=== PATIENT | male | born 1950 | race Caucasian/White ===

== ENCOUNTER 2020-12-14 11:51 | Emergency (ER) | payer OTHER ==
--- OUTSIDE RECORDS SUMMARY | 2020-12-14 11:55 | XMS REPORT | Continuity of Care Document ---
:1950 Author Organization [facility] t Address [address] [place] [address] Care Team Providers Name Role Phone Gil Menjivar MD Primary Care Physician Problems Condition Condition Condition Status Onset Resolution Last Treating Co mments Source Name Details Category Date Date Treatment Clinician Date Impingemen Impingemen Disease Active 2016-[address] t syndrome t syndrome 2-06 Fiona kes - of right of right 00:00: Medica l shoulder shoulder 00 Center Rotator Rotator Disease Active 2016-[address] [facility] cuff tear, cuff tear, 2-06 Fiona kes - right right 00:00: Medical 00 [place] Hyperlipid Hyperlipid Disease Active 2016-[address] [facility] emia 06-09 [facility] 00 [place] Prehyperte Prehyperte Disease Active 2016-[address] nsion nsion 06-09 [facility] - 00:00: Medical 00 [place] Former Former Disease Active 2016-[address] [facility] smoker smoker 06-04 [facility] - 00:[facility]: Medical 00 [place] Rotator Rotator Disease Active 2016-[address] [facility] cuff cuff 06-04 [facility] - injury, injury, 00:00: Medical right, right, 00 Center sequela sequela Lumbar Lumbar Disease Active [facility] stenosis stenosis [facility] Depression Depression Disease Active C [facility] Allergies, Adverse Reactions, Alerts This patient has no known allergies or adverse reactions. Family History Family Member Diagnosis Comments Start Date Stop Date Source Natural sister No Known Problem [facility] Natural brother No Known Problem [facility] Natural father No Known Problem [facility] Natural mother No Known Problem [facility] Social History Social Habit Start Date Stop Date Quantity Comments Source Sex Assigned At [facility] kes - [facility] History of tobacco Current smoker JOSE Eddy - use [facility] Cigarettes smoked 2017-05-07 2017-05-07 STEVIE Eddy - current (pack per 00:00:00 00:00:00 [facility] day) - Reported Cigarette 2017-05-07 2017-05-07 STEVIE Eddy - pack-years 00:00:00 00:00:00 [facility] Tobacco use and 2017-05-07 2017-05-07 Former user STEVIE Rivera - exposure 00:00:00 00:00:00 [facility] Alcohol intake 2017-05-07 2017-05-07 Current STEVIE Olson es - 00:00:00 00:00:00 non-drinker of Medical Ce nter alcohol (finding) Smoking Status Start Date Stop Date Source Former smoker 2017-05-07 00:00:00 2017-05-07 00:00:00 [facility] Medications Ordered Filled Start Stop Current Ordering Indication Dosage Frequency Signature Comments Components Source Medication Medication Date Date Medication? Clinician (SIG) Name Name PARoxetine Yes TAKE ONE [facility] (PAXIL) 20 1-11 TABLET BY Luke [facility] - MG tablet 00:00: MOUTH ONCE Me dical 00 DAILY Center traMADol 2016-06 Yes 50mg Take [address] [facility] (ULTRAM) 50 2-06 by mouth [facility] - mg tablet 16:52: every 6 Medic al 16 (six) Center hours as needed for Pain. Immunizations Ordered Immunization Filled Immunization Date Status Commen ts Source Name Name Influenza High Dose 2017-04-03 Completed STEVIE S t [facility] Preservative Free IM 00:00:00 [facility] Procedures This patient has no known procedures. Results Test Description Test Time Test Comments Results Result [facility] Comments RAD, CHEST, 2 2017-04-09 Reason for FINAL REPORT PATIENT VIEWS 13:13:00 Exam:->pre-ope ID: [id number] Chest, rative two views HISTORY: clearance; Preoperative clearance smoking COMPARISON: None. history; mild DISCUSSION: Lungs are chronic cough clear without focal consolidation. Cardiomediastinal silhouette is unremarkable. No acute osseous abnormality. No pleural effusion or pneumothorax. Visualized portions of the upper abdomen are unremarkable. IMPRESSION: No acute cardiopulmonary abnormality. Signed: Priyank Morley MDReport Verified Date/Time: 04/09/2017 13:13:18 Reading Location: [address] Radiology Reading Room
--- NOTE | 2020-12-14 12:32 | RAD REPORT ---
EXAM DESCRIPTION: RAD - Chest Single View - 12/14/2020 12:20 pm CLINICAL HISTORY: Chest pain;SOB COMPARISON: No comparisons FINDINGS: No evidence of edema or pneumonia. The heart size is within normal limits.No acute osseous abnormality. No significant pleural effusions or pneumothorax. IMPRESSION: No acute cardiopulmonary disease.
[2020-12-14 12:47] LABS: Protime INR 1.17
[2020-12-14 12:52] LABS: Absolute Lymphocytes (CBC) 1.9 K/uL (0.7-4.9); Basophils % 0.5 % (0-1.3); Hematocrit 42.1 % (39.6-49.0); Lymphocytes % 25.8 % (15.3-44.8); MPV 8.1 fL (7.6-11.3); RBC Red Blood Cell Count 4.49 M/uL (4.33-5.43)
[2020-12-14] MEDS ORDERED: ALBUTEROL 2.5 MG/3 ML NEB SOL ONE (12:59)
[2020-12-14] MEDS ORDERED: IPRATROPIUM BROM 0.5MG/2.5ML ONE (12:59)
[2020-12-14 13:05] LABS: ALT/SGPT 19 U/L (12-78); AST/SGOT 12 U/L (15-37); Albumin 4.1 g/dL (3.4-5.0); Alkaline Phosphatase 63 U/L (45-117); BUN Blood Urea Nitrogen 11 mg/dL (7-18); Bicarbonate 24 mmol/L (21-32); Bilirubin Direct 0.2 mg/dL (0-0.2); Bilirubin Total 0.9 mg/dL (0.2-1.0); Glucose Level 89 mg/dL (74-106); Magnesium 2.2 mg/dL (1.8-2.4); NT PRO-BNP 349 pg/mL (<125); Potassium 4.3 mmol/L (3.5-5.1); Protein, Total 7.7 g/dL (6.4-8.2); Sodium Level 142 mmol/L (136-145); Troponin (Emerg Dept Use Only) < 0.02 ng/mL (0.0-0.045)
--- NOTE | 2020-12-14 17:06 | ER ---
Nurse's Notes [facility] Name: Blayne Chris Age: 70 yrs Sex: Male : 1950 Arrival Date: 12/14/2020 Time: 11:55 Bed 7 Private MD: Diagnosis: Chest pain, unspecified;Shortness of breath;Hypertensive heart disease without heart failure Presentation: 12/14 12:01 Chief complaint: Patient states: chest pain, SOB, and high blood pressure x 1 week ago. aa5 12:01 Coronavirus screen: shortness of breath. Ebola Screen: Patient negative for fever aa5 greater than or equal to 101.5 degrees Fahrenheit, and additional compatible Ebola Virus Disease symptoms. Initial Sepsis Screen: Does the patient meet any 2 criteria? No. Patient's initial sepsis screen is negative. Does the patient have a suspected source of infection? No. Patient's initial sepsis screen is negative. Risk Assessment: Do you want to hurt yourself or someone else? Patient reports no desire to harm self or others. Onset of symptoms was November 2020. 12:01 Acuity: CHRISTINA 3 aa5 12:01 Method Of Arrival: Ambulatory aa5 Triage Assessment: 11:45 General: Appears in no apparent distress. comfortable, Behavior is cooperative, bp appropriate for age, anxious. Pain: Complains of pain in chest. EENT:. Neuro: No deficits noted. Cardiovascular: Rhythm is sinus rhythm. Respiratory: No deficits noted. GI: No deficits noted. : No signs and/or symptoms were reported regarding the genitourinary system. Derm: No deficits noted. Musculoskeletal: No deficits noted. Historical: - Allergies: 12:10 No Known Allergies; aa5 - PMHx: 12:10 None; aa5 - PSHx: 12:10 Rotator cuff; aa5 - Immunization history:: Adult Immunizations unknown. - Social history:: Smoking status: Patient/guardian denies using tobacco. Screenin:30 Abuse screen: Denies threats or abuse. Denies injuries from another. Nutritional bp screening: No deficits noted. Tuberculosis screening: No symptoms or risk factors identified. Fall Risk None identified. Assessment: 11:45 General: SEE TRIAGE NOTE. bp 14:00 Reassessment: No changes from previously documented assessment. Patient and/or family bp updated on plan of care and expected duration. Pain level reassessed. Patient is alert, oriented x 3, equal unlabored respirations, skin warm/dry/pink. 16:00 Reassessment: Patient appears in no apparent distress at this time. Patient states bp feeling better. Patient states symptoms have improved. 17:20 Reassessment: PT D/C HOME AMBULATORY, DX WITH NON-CARDIAC CP. jl7 Vital Signs: 12:01 BP 152 / 97; Pulse 84; Resp 20 S; Temp 98.5(O); Pulse Ox 97% on R/A; Weight 95.25 kg aa5 (R); Height 6 ft. 0 in. (182.88 cm) (R); 13:30 BP 138 / 80; Pulse 83; Resp 25; Pulse Ox 100% ; bp 14:30 BP 128 / 73; Pulse 80; Resp 26; Pulse Ox 99% ; bp 16:30 BP 120 / 74; Pulse 66; Resp 20; Pulse Ox 100% ; bp 17:20 BP 132 / 71; Pulse 65; Resp 22; Temp 98.5; Pulse Ox 100% ; jl7 12:01 Body Mass Index 28.48 (95.25 kg, 182.88 cm) aa5 ED Course: 11:55 Patient arrived in ED. mr 12:01 Matt Barnes MD is Attending Physician. kdr 12:01 Arm band placed on Patient placed in an exam room, on a stretcher. aa5 12:10 Triage completed. aa5 12:20 XRAY Chest (1 view) In Process Unspecified. EDMS 12:30 Patient has correct armband on for positive identification. Bed in low position. Call bp light in reach. Side rails up X2. epic specialist on. Pulse ox on. NIBP on. 12:56 Kan Funk, FRANKLYN is Primary Nurse. bp 13:00 Inserted saline lock: 20 gauge in right antecubital area, using aseptic technique. bp Blood collected. 15:23 Repeat lab(s) drawn. by me, sent to lab. jl7 17:21 No provider procedures requiring assistance completed. IV discontinued, intact, jl7 bleeding controlled, No redness/swelling at site. Pressure dressing applied. Patient maintains SpO2 saturation greater than 95% on room air. Administered Medications: 12:30 Drug: Albuterol - atroVENT (ipratropium) (3:1) (2.5 mg - 0.5 mg) 3 ml Route: Nebulizer; bp 16:47 Follow up: Response: No adverse reaction; Marked relief of symptoms bp Outcome: 17:05 Discharge ordered by . dexter 17:21 Discharged to home ambulatory. becca 17:21 Condition: stable 17:21 Discharge instructions given to patient, Instructed on discharge instructions, follow up and referral plans. Demonstrated understanding of instructions, follow-up care. 17:23 Patient left the ED. [email or web address] Signatures: Dispatcher [employer] EDMS Matt Barnes MD MD kdr Rivera, Mary mr DallasDomenica, RN RN aa5 Arie Rodriguez RN RN jl7 Kan Funk RN RN bp
--- NOTE | 2020-12-14 17:06 | EDPHYS ---
Physician Documentation [facility] Name: Blayne Chris Age: 70 yrs Sex: Male : 1950 Arrival Date: 12/14/2020 Time: 11:55 Bed 7 Private MD: ED Physician Matt Barnes HPI: 12/14 17:33 This 70 yrs old Male presents to ER via Ambulatory with complaints of Blood kdr Pressure Problem, Chest Pain, Breathing Difficulty. 17:33 The patient or guardian reports chest pain that is located primarily in the anterior kdr chest wall, bilaterally, chest diffusely. Onset: gradually, 1 week(s) ago. The pain does not radiate. Associated signs and symptoms: Pertinent positives: shortness of breath, Pertinent negatives: abdominal pain, diaphoresis, dizziness, headache, lower extremity pain, lower extremity swelling, lightheadedness, nausea, near syncope, palpitations, recent travel, syncope. The chest pain is described as aching, dull, a pressure. Duration: The patient or guardian reports multiple episodes, that are intermittent, that wax and wane, with no pattern. Modifying factors: The symptoms are alleviated by nothing. the symptoms are aggravated by nothing. Severity of pain: At its worst the pain was mild moderate just prior to arrival, in the emergency department the pain has improved mildly. The patient has not experienced similar symptoms in the past. Historical: - Allergies: 12:10 No Known Allergies; aa5 - PMHx: 12:10 None; aa5 - PSHx: 12:10 Rotator cuff; aa5 - Immunization history:: Adult Immunizations unknown. - Social history:: Smoking status: Patient/guardian denies using tobacco. ROS: 17:33 Constitutional: Negative for fever, chills, and weight loss, Eyes: Negative for injury, kdr pain, redness, and discharge, Neck: Negative for injury, pain, and swelling, Respiratory: Negative for shortness of breath, cough, wheezing, and pleuritic chest pain, Abdomen/GI: Negative for abdominal pain, nausea, vomiting, diarrhea, and constipation, Back: Negative for injury and pain, : Negative for injury, bleeding, discharge, and swelling, MS/Extremity: Negative for injury and deformity, Skin: Negative for injury, rash, and discoloration, Neuro: Negative for headache, weakness, numbness, tingling, and seizure activity. Psych: Negative for depression, anxiety, suicide ideation, homicidal ideation, and hallucinations, Allergy/Immunology: Negative for hives, rash, and allergies, Endocrine: Negative for neck swelling, polydipsia, polyuria, polyphagia, and marked weight changes, Hematologic/Lymphatic: Negative for swollen nodes, abnormal bleeding, and unusual bruising. 17:33 Cardiovascular: Positive for chest pain, Negative for edema, orthopnea, palpitations, paroxysmal nocturnal dyspnea. Exam: 17:33 Constitutional: This is a well developed, well nourished patient who is awake, alert, kdr and in no acute distress. Head/Face: Normocephalic, atraumatic. Eyes: Pupils equal round and reactive to light, extra-ocular motions intact. Lids and lashes normal. Conjunctiva and sclera are non-icteric and not injected. Cornea within normal limits. Periorbital areas with no swelling, redness, or edema. Neck: Trachea midline, no thyromegaly or masses palpated, and no cervical lymphadenopathy. Supple, full range of motion without nuchal rigidity, or vertebral point tenderness. No Meningismus. Chest/axilla: Normal chest wall appearance and motion. Nontender with no deformity. No lesions are appreciated. Cardiovascular: Regular rate and rhythm with a normal S1 and S2. No gallops, murmurs, or rubs. Normal PMI, no JVD. No pulse deficits. Respiratory: Lungs have equal breath sounds bilaterally, clear to auscultation and percussion. No rales, rhonchi or wheezes noted. No increased work of breathing, no retractions or nasal flaring. Abdomen/GI: Soft, non-tender, with normal bowel sounds. No distension or tympany. No guarding or rebound. No evidence of tenderness throughout. Back: No spinal tenderness. No costovertebral tenderness. Full range of motion. Skin: Warm, dry with normal turgor. Normal color with no rashes, no lesions, and no evidence of cellulitis. MS/ Extremity: Pulses equal, no cyanosis. Neurovascular intact. Full, normal range of motion. Neuro: Awake and alert, GCS 15, oriented to person, place, time, and situation. Cranial nerves II-XII grossly intact. Motor strength 5/5 in all extremities. Sensory grossly intact. Cerebellar exam normal. Normal gait. Psych: Awake, alert, with orientation to person, place and time. Behavior, mood, and affect are within normal limits. 17:33 ECG was reviewed by the Attending Physician. Vital Signs: 12:01 BP 152 / 97; Pulse 84; Resp 20 S; Temp 98.5(O); Pulse Ox 97% on R/A; Weight 95.25 kg aa5 (R); Height 6 ft. 0 in. (182.88 cm) (R); 13:30 BP 138 / 80; Pulse 83; Resp 25; Pulse Ox 100% ; bp 14:30 BP 128 / 73; Pulse 80; Resp 26; Pulse Ox 99% ; bp 16:30 BP 120 / 74; Pulse 66; Resp 20; Pulse Ox 100% ; bp 17:20 BP 132 / 71; Pulse 65; Resp 22; Temp 98.5; Pulse Ox 100% ; jl7 12:01 Body Mass Index 28.48 (95.25 kg, 182.88 cm) aa5 MDM: 17:05 Patient medically screened. [facility] 12/15 07:25 Data reviewed: vital signs, nurses notes, lab test result(s), radiologic studies. kdr Counseling: I had a detailed discussion with the patient and/or guardian regarding: the historical points, exam findings, and any diagnostic results supporting the discharge/admit diagnosis, lab results, radiology results, the need for further work-up and treatment in the hospital. 12/14 12:02 Order name: Basic Metabolic Panel; Complete Time: 14:54 [facility] 12/14 12:02 Order name: CBC with Diff; Complete Time: 14:54 [facility] 12/14 12:02 Order name: LFT's; Complete Time: 14:54 [facility] 12/14 12:02 Order name: Magnesium; Complete Time: 14:54 [facility] 12/14 12:02 Order name: NT PRO-BNP; Complete Time: 14:54 [facility] 12/14 12:02 Order name: PT-INR; Complete Time: 14:54 [facility] 12/14 12:02 Order name: Troponin (emerg Dept Use Only); Complete Time: 14:54 [facility] 12/14 12:02 Order name: XRAY Chest (1 view); Complete Time: 14:54 [facility] 12/14 12:02 Order name: EKG; Complete Time: 12:03 [facility] 12/14 12:02 Order name: Cardiac monitoring; Complete Time: 12:29 [facility] 12/14 14:42 Order name: SARS-COV-2 RT PCR; Complete Time: 14:54 [facility] 12/14 14:55 Order name: Troponin (emerg Dept Use Only); Complete Time: 16:50 [facility] 12/14 12:02 Order name: EKG - Nurse/Tech; Complete Time: 12:29 [facility] 12/14 12:02 Order name: IV Saline Lock; Complete Time: 12:29 [facility] 12/14 12:02 Order name: Labs collected and sent; Complete Time: 12:29 [facility] 12/14 12:02 Order name: O2 Per Protocol; Complete Time: 12:29 [facility] 12/14 12:02 Order name: O2 Sat Monitoring; Complete Time: 12:30 kdr EC/15 17:33 Rate is 74 beats/min. Rhythm is regular, Sinus Rhythm with Unifocal PVCs, Occasional kdr PVCs. QRS [place] is Normal. ND interval is normal. QRS interval is normal. QT interval is normal. Clinical impression: NSR w/ Non-specific ST/T Changes. Administered Medications: 12:30 Drug: Albuterol - atroVENT (ipratropium) (3:1) (2.5 mg - 0.5 mg) 3 ml Route: Nebulizer; bp 16:47 Follow up: Response: No adverse reaction; Marked relief of symptoms bp Disposition Summary: 12/14/20 17:05 Discharge Ordered Location: Home kdr Problem: new kdr Symptoms: have improved kdr Condition: Stable kdr Diagnosis - Chest pain, unspecified kdr - Shortness of breath kdr - Hypertensive heart disease without heart failure kdr Followup: kdr - With: Private Physician - When: 2 - 3 days - Reason: If symptoms return, Further diagnostic work-up, Recheck today's complaints, Continuance of care, Re-evaluation by your physician Discharge Instructions: - Discharge Summary Sheet kdr - Shortness of Breath, Adult, [id number] kdr - Nonspecific Chest Pain, Adult, [id number] kdr Forms: - Medication Reconciliation Form kdr - Thank You Letter kdr Signatures: Dispatcher [employer] Matt Allen MD MD kdr Domenica Dallas, FRANKLYN RN aa5 Kan Funk RN RN bp Corrections: (The following items were deleted from the chart) 13:44 12:23 CORONAVIRUS+MR.[email or web address].BRZ ordered. EDMS EDMS
[2020-12-14 17:30] VITALS: TEMP 98.5
[2020-12-14 17:34] VITALS: O2SAT 100
[2020-12-14 17:36] VITALS: BP 132/71
--- NOTE | 2020-12-15 11:46 | EKG ---
Test Date: 2020-12-14 Test Time: 12:12:00 Leader Writer: GERBER MEASUREMENT RESULTS: Intervals: Rate: 74 TN: 162 QRSD: 104 QT: 424 QTc: 470 [place]: P: 69 TN: 162 QRS: -59 T: 66 INTERPRETIVE STATEMENTS: Sinus rhythm with sinus arrhythmia with occasional premature ventricular complexes Left anterior fascicular block Abnormal ECG Compared to ECG 09/19/2005 09:57:09 Ventricular premature complex(es) now present Left anterior fascicular block now present Electronically Signed On 12-15-20 11:42:21 CDT by López Sanders
== END 2020-12-14 17:23 | disposition home or self-care (01) ==
LOC: ER 11:51
DX: I11.9 Hypertensive heart disease without heart failure (principal); R06.02 Shortness of breath; Z20.822 Contact with and (suspected) exposure to COVID-19
CPT/HCPCS: 93005; 85025; 80048; 36415; 83735; 85610; 80076; 84484 ×2; 83880; 71045; 99285; U0003

== ENCOUNTER 2021-08-10 08:37 | Day surgery (SDC) | payer OTHER ==
--- NOTE | 2021-08-08 12:54 | EKG ---
Test Date: 2021-08-07 Test Time: 14:35:14 Search Engineer: CATRINA MEASUREMENT RESULTS: Intervals: Rate: 61 CA: 164 QRSD: 108 QT: 442 QTc: 444 [place]: P: 58 CA: 164 QRS: -33 T: 34 INTERPRETIVE STATEMENTS: Normal sinus rhythm Left axis deviation Incomplete left bundle branch block Abnormal ECG Compared to ECG 12/14/2020 12:12:00 Left-axis deviation now present Left bundle-branch block now present Sinus arrhythmia no longer present Ventricular premature complex(es) no longer present Left anterior fascicular block no longer present Electronically Signed On 08-08-21 12:52:07 PIPED POCKET MACHINE OPERATOR by López Sanders
[2021-08-10] MEDS ORDERED: Ringers Lactate 1,000 ML IV ONE (08:44)
[2021-08-10] MEDS ORDERED: LIDOCAINE 1% W/EPI 1:100,000 MDV 50 ML VIAL ONE (09:14)
[2021-08-10] MEDS ORDERED: EPINEPHRINE/PF 1 MG/ML AMP ONE (09:14)
[2021-08-10] MEDS ORDERED: LIDOCAINE 1% MPF 5 ML VIAL ONE (09:24)
[2021-08-10] MEDS ORDERED: FENTANYL CITR 100 MCG/2 ML ONE (09:24)
[2021-08-10] MEDS ORDERED: MIDAZOLAM HCL 2 MG/2 ML INJ ONE (09:24)
[2021-08-10] MEDS ORDERED: propofoL 200 MG/20 ML VIAL IV ONE (09:24)
[2021-08-10] MEDS ORDERED: ROCURONIUM 50 MG/5 ML VIAL IV ONE (09:24)
[2021-08-10] MEDS ORDERED: dexAMETHasone 10 MG/ML VIAL ONE (09:59)
[2021-08-10] MEDS ORDERED: ONDANSETRON 4 MG/2 ML VIAL ONE (10:07)
[2021-08-10] MEDS ORDERED: KETOROLAC 30 MG/ML INJ ONE (10:07)
--- NOTE | 2021-08-10 10:17 | P.BOP ---
Preoperative diagnosis: dysphonia, neoplasm uncertain behavior, former smoker Postoperative diagnosis: same Primary procedure: DL with telescope and biopsy Technical Service Rep: NONE,NONE Estimated blood loss: <5ml Specimen: right true vocal fold Findings: friable mass on full length of R TVF, extending toward anterior commisure Anesthesia: General Complications: None Implants: none Fluids & blood products: Crystalloid 550ml Transferred to: Recovery Room Condition: Good
[2021-08-10] MEDS ORDERED: SUGAMMADEX SODIUM 200 MG/2 ML VIAL IV ONE (10:19)
[2021-08-10] MEDS: HYDROMORPHONE HCL 1 MG/ML INJ ONE ×2 (10:48→10:53)
[2021-08-10] MEDS ORDERED: AMIODARONE HCL 150 MG in D5W 100 ML IV STA (10:54)
[2021-08-10] MEDS ORDERED: AMIODARONE HCL 150 MG/3 ML INJ IV ONE (11:00)
[2021-08-10] MEDS ORDERED: HYDROCODONE/APAP 7.5/325 MG TAB ONE (11:54)
--- NOTE | 2021-08-10 13:08 | EKG ---
Test Date: 2021-08-10 Test Time: 10:43:07 Tailer Out: MILAGROS MEASUREMENT RESULTS: Intervals: Rate: 115 ME: QRSD: 108 QT: 348 QTc: 481 [place]: P: ME: QRS: -52 T: 19 INTERPRETIVE STATEMENTS: Atrial fibrillation with rapid ventricular response with premature ventricular or aberrantly conducted complexes Left axis deviation Nonspecific ST abnormality, probably digitalis effect Abnormal ECG Compared to ECG 08/07/2021 14:35:14 Ventricular premature complex(es) now present ST (T wave) deviation now present Sinus rhythm no longer present Left bundle-branch block no longer present Electronically Signed On 08-10-21 13:07:50 CREATIVE WRITER by López Sanders
[2021-08-10 13:43] VITALS: BP 130/79; TEMP 97.4; O2SAT 96
--- NOTE | 2021-08-11 00:54 | OP ---
Date of Procedure: 08/10/2021 Surgeon: Roberta Cardoza MD Maintenance Mechanic 2Nd Shift: None. 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 Procedure: Direct laryngoscopy with telescope and biopsy. Significant Surgical Findings: Friable mildly exophytic tumor involving the full length and breadth of the true vocal fold, but not obviously extending into the laryngeal ventricle, nor involving the a rytenoid mucosa. 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 Indication For Procedure: Mr. 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 Based on h is flexible laryngoscopy findings, I recommended a direct laryngoscopy in the operating room with bio psies due to clinical suspicion for squamous cell carcinoma. The risks, benefits, and alternatives t o the procedure were discussed with the patient, who agreed to proceed. Description Of Procedure: The patient was brought to the operating room. He was placed under genera l anesthesia via oral endotracheal tube. A shoulder roll was placed and the neck was extended with s upport of the head. A tooth guard was placed over the upper teeth and a [employer] laryngoscope fi tted with a 15-degree rigid telescope was used to perform a direct laryngoscopy. The hard and soft p alate, uvula, bilateral tonsils, and posterior pharyngeal wall all seemed unremarkable. The base of tongue had no visible or palpable lesions. The epiglottis was mildly erythematous, but did not show any ulcerations or easy friability or any evidence of gross tumor. The arytenoids demonstrated taylor h mucosa. The Aydin-[employer] was then placed in suspension for better visualization of the glottis. T here was irregular minimally exophytic tumor noted along the length and width of the right true vocal fold, which did not appear to extend onto the arytenoid and did not appear to extend into the laryng eal ventricle. The abnormal-appearing tissue did extend into the anterior commissure with some white plaques and thickening along the left anterior vocal fold. After photodocumentation, cup forceps wa s used to make several small biopsies along the length of the right vocal fold, which were then sent to permanent section pathology. A small cotton pledget was placed against the biopsy site for severa l minutes to aid in hemostasis. After removal, the area appeared stable with no active bleeding and the laryngoscope was released from suspension and slowly withdrawn. There was no apparent injury to the tongue, pharynx, lips, or teeth. The mouth guard was removed and the patient was returned to car e of anesthesia for awakening and extubation in the operating room, which proceeded without difficult y. Estimated Blood Loss: Minimal. Complications: None. Implants: None. Disposition: The patient will be discharged home later today and follow up with Dr. Cardoza in 10 da for discussion of pathology results and treatment options. GLENNA/LUKE Voice ID: [id number] Report ID: [id number]
== END 2021-08-10 13:25 | disposition home or self-care (01) ==
LOC: OR 08:37
PROVIDERS: ATTEND Otolaryngology
PROC: 0CBT8ZX Excision of Right Vocal Cord, Via Natural or Artificial Opening Endoscopic, Diagnostic (ICD-10-PCS; principal; 2021-08-10 10:00)
DX: C32.0 Malignant neoplasm of glottis (principal); R49.0 Dysphonia; E66.3 Overweight; Z20.822 Contact with and (suspected) exposure to COVID-19; Z87.891 Personal history of nicotine dependence
CPT/HCPCS: 88305; 93005; J0171; J0282; J1100; J1170; J2250; J2405; J2704; J3010; J7120; U0003

== ENCOUNTER 2022-01-22 06:51 | Emergency (ER) | payer OTHER ==
--- OUTSIDE RECORDS SUMMARY | 2022-01-22 06:53 | XMS REPORT | Continuity of Care Document ---
:1950 Author Organization [facility] t Address [address] [place] [address] Care Team Providers Name Role Phone Unknown, Physician Primary Care Physician Unavailable SARAH ESPINOZA Attending Clinician Unavailable Libby Darling MA Attending Clinician Unavailable Lala Noel MA Attending Clinician Unavailable Lori Patterson APRN Attending Clinician SARAH ESPINOZA Attending Clinician Unavailable SARAH ESPINOZA Admitting Clinician Unavailable SARAH ESPINOZA Admitting Clinician Unavailable Payers Payer Name Policy Type Policy Number Effective Date Expiration Date juvenalce MEDICARE PART A [id number] 2013 AND B 00:00:00 Problems Condition Condition Condition Status Onset Resolution Last Treating Co mments Source Name Details Category Date Date Treatment Clinician Date No known No known Disease [place] active active Health problems problems Allergies, Adverse Reactions, Alerts This patient has no known allergies or adverse reactions. Social History Social Habit Start Date Stop Date Quantity Comments Source History of tobacco Cigarette Smoker [facility] use Tobacco use and 2021-12-31 2021-12-31 Smokeless tobacco [facility] exposure 00:00:00 00:00:00 non-user Cigarette 2021-09-17 2021-09-17 [facility] pack-years 00:00:00 00:00:00 Sex Ass[birth year] At [birth year] [facility] 00:00:00 00:00:00 Smoking Status Start Date Stop Date Source Ex-smoker 2021-12-31 00:00:00 2021-12-31 00:00:00 [facility] Medications Ordered Filled Start Stop Current Ordering Indication Dosage Frequency Signature Comments Components Source Medication Medication Date Date Medication? Clinician (SIG) Name Name HYDROcodone 2021-0 202- Yes [id number] 1{tbl} Q6H Take 1 [facility] -acetaminop 6-21 06-27 tablet by [facility] ([employer]) 00:00: 04:59 mouth 5-325 MG 00 :00 every 6 tablet (six) hours if needed for severe pain for up to 5 days. HYDROcodone 2021-0 Yes [id number] 1{tbl} Q6H Take 1 [facility] -acetaminop 6-06 tablet by [facility] ([employer]) 00:00: mouth 5-325 MG 00 every 6 tablet (six) hours if needed for severe pain for up to 45 doses. HYDROcodone 2021-0 Yes [id number] 1{tbl} Q6H Take 1 UT -acetaminop 6-06 tablet by [facility] ([employer]) 00:00: mouth 5-325 MG 00 every 6 tablet (six) hours if needed for severe pain for up to 45 doses. HYDROcodone 2021-0 Yes [id number] 1{tbl} Q6H Take 1 UT -acetaminop 6-06 tablet by [facility] ([employer]) 00:00: mouth 5-325 MG 00 every 6 tablet (six) hours if needed for severe pain for up to 45 doses. HYDROcodone 2021-0 Yes [id number] 1{tbl} Q6H Take 1 UT -acetaminop 6-06 tablet by He [facility] ([employer]) 00:00: mouth 5-325 MG 00 every 6 tablet (six) hours if needed for severe pain for up to 45 doses. HYDROcodone 2021-0 Yes [id number] 1{tbl} Q6H Take 1 UT -acetaminop 6-06 tablet by [facility] ([employer]) 00:00: mouth 5-325 MG 00 every 6 tablet (six) hours if needed for severe pain for up to 45 doses. HYDROcodone 2021-0 Yes [id number] 1{tbl} Q6H Take 1 UT -acetaminop 6-06 tablet by [facility] ([employer]) 00:00: mouth 5-325 MG 00 every 6 tablet (six) hours if needed for severe pain for up to 45 doses. HYDROcodone Yes [id number] 1{tbl} Q6H Take 1 UT -acetaminop 6-06 tablet by [facility] ([place]) 00:00: mouth 5-325 MG 00 every 6 tablet (six) hours if needed for severe pain for up to 45 doses. traMADol 2021- No [id number] 50mg Take 1 U T (Ultram) 50 5-18 05-24 tablet (50 [facility] MG tablet 00:00: 04:59 mg total) 00 :00 by mouth every 8 (eight) hours if needed for severe pain for up to 5 days. No known No No known UT medications 4-18 medication He alth 10:10: s 44 No known No No known UT medications 4-18 medication He alth 10:10: s 44 No known No No known UT medications 4-18 medication He alth 10:10: s 44 No known No No known UT medications 4-18 medication He alth 10:10: s 44 Vital Signs Vital Name Observation Time Observation Value Comments Source Body height 2021-12-31 16:25:00 182.9 cm [facility] Body weight 2021-12-31 16:25:00 77.111 kg [facility] BMI 2021-12-31 16:25:00 23.06 kg/m2 [facility] Body height 2021-11-19 15:55:00 182.9 cm [facility] Body weight 2021-11-19 15:55:00 84.369 kg [facility] BMI 2021-11-19 15:55:00 25.23 kg/m2 [facility] Procedures This patient has no known procedures. Encounters Start End Encounter Admission Attending Care Care Encounter Source Date/Time Date/Time Type Type Clinicians Facility Department ID 2021-12-26 Outpatient [facility] [id number] [place] 09:37:58 [id number] [facility] 2021-11-19 Outpatient SARAH ESPINOZA [facility] [id number] [id number] [place] 10:52:12 [id number] [facility] 2021-11-16 Outpatient SARAH ESPINOZA [facility] [id number] [id number] [place] 13:22:29 [id number] [facility] 2021-10-19 Outpatient [facility] [id number] [place] 17:08:26 [id number] Health 2022-02-11 2022-02-11 Outpatient SARAH ESPINOZA [facility] [id number] [place] 12:30:00 12:30:00 Health 2021-12-31 2021-12-31 Office Sarah Espinoza [facility] 6400 [id number] [place] 12:00:00 12:15:[address] [id number] Health [id number] 3 2021-12-27 2021-12-27 Telephone Sarah Espinoza [facility] 6400 1.2.840.114 [id number] [place] 00:00:00 00:00:[address] [id number] Health [id number] 3 2021-12-26 2021-12-26 Telephone Sarah Espinoza [facility] 6400 1.2.840.114 [id number] [place] 00:00:00 00:00:[address] [id number] Health [id number] 3 2021-12-25 2021-12-25 Telephone Sarah Espinoza [facility] 6400 1.2.840.114 [id number] [place] 00:00:00 00:00:[address] [id number] Health [id number] 3 2021-11-20 2021-11-20 Telephone Libby Darling [facility] 6400 1.2.840 .114 [id number] [place] 00:00:00 00:00:[address] [id number] Health [id number] 3 2021-11-19 2021-11-19 Office Sarah Espinoza [facility] 6400 1.2.840.114 [id number] [place] 11:00:00 11:29:[address] [id number] Health [id number] [id number] 3 2021-11-16 2021-11-16 Telephone Libby Darling [facility] 6400 1.2.840 .114 [id number] [place] 00:00:00 00:00:[address] [id number] Health [id number] [id number] 3 2021-11-05 2021-11-05 Telephone Lala Noel [facility] 6400 1.2.84 0.114 [id number] [place] 00:00:00 00:00:[address] [id number] Health [id number] [id number] 3 2021-10-24 2021-10-24 Telephone Yesenia [facility] 6400 1.2.840.114 [id number] [place] 00:00:00 00:00:[address] [id number] Health [id number] [id number] 3 2021-10-24 2021-10-24 Telephone Libby Darling [facility] 6400 1.2.840 .114 [id number] [place] 00:00:00 00:00:[address] [id number] Health [id number] [id number] 3 2021-10-19 2021-10-19 Telephone Sarah Espinoza [facility] 1.2.840.114 [id number] [place] 00:00:00 00:00:00 [facility] [id number] [facility] alth [place] 1 [id number] [id number] 3 2021-10-15 2021-10-15 Telephone Sarah Espinoza [facility] 1.2.840.114 [id number] [place] 00:00:00 00:00:00 [facility] [id number] [facility] alth [place] 1 [id number] [id number] 3 2021-10-10 2021-10-10 Outpatient SARAH ESPINOZA [facility] [id number] [facility] 05:17:00 23:59:00 2021-10-10 2021-10-10 Outpatient SARAH ESPINOZA [facility] [id number] [place] 08:00:00 08:00:00 Health Results Test Description Test Time Test Comments Results Result [facility] e Comments RAD, CHEST, 2 2017-04-09 Reason for FINAL REPORT PATIENT VIEWS 13:13:00 Exam:->pre-ope ID: [id number] Chest, two rative views HISTORY: clearance; Preoperative clearance smoking COMPARISON: None. history; mild DISCUSSION: Lungs are chronic cough clear without focal consolidation. Cardiomediastinal silhouette is unremarkable. No acute osseous abnormality. No pleural effusion or pneumothorax. Visualized portions of the upper abdomen are unremarkable. IMPRESSION: No acute cardiopulmonary abnormality. Signed: Priyank Morley MDReport Verified Date/Time: 04/09/2017 13:13:18 Reading Location: [address] Radiology Reading Room
[2022-01-22] MEDS ORDERED: LACTULOSE 20 GM/30 ML UCUP ONE (07:49)
--- NOTE | 2022-01-22 08:07 | RAD REPORT ---
EXAM DESCRIPTION: RAD - Abdomen Acute Series - 01/22/2022 7:52 am CLINICAL HISTORY: Abd pain COMPARISON: Chest Single View dated 12/14/2020; Ct Skull/Thigh dated 11/15/2021 FINDINGS: Nonobstructive bowel gas pattern. No acute osseous abnormality.Visualized lungs are unrema rkable.No abnormal calcifications. Soft tissue anchors in the right humeral head. IMPRESSION: Nonobstructive bowel gas pattern.
--- NOTE | 2022-01-22 08:37 | ER ---
Nurse's Notes [facility] Name: Blayne Chris Age: 71 yrs Sex: Male : 1950 Arrival Date: 01/22/2022 Time: 06:54 Bed 19 Private MD: Diagnosis: Constipation;Constipation, unspecified Presentation: 01/22 07:01 Chief complaint: Patient states: "I have throat cancer, and after this last treatment i tw5 just have not been able to have a bowl movement. The only thing that has come out is water. 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 Coronavirus screen: Vaccine status: Patient reports receiving the 2nd dose of the covid vaccine. Exanet. Ebola Screen: Patient negative for fever greater than or equal to 101.5 degrees Fahrenheit, and additional compatible Ebola Virus Disease symptoms Patient denies exposure to infectious person. Patient denies travel to an Ebola-affected area in the 21 days before illness onset. Initial Sepsis Screen: Does the patient meet any 2 criteria? No. Patient's initial sepsis screen is negative. Does the patient have a suspected source of infection? No. Patient's initial sepsis screen is negative. Risk Assessment: Do you want to hurt yourself or someone else? Patient reports no desire to harm self or others. Onset of symptoms is unknown. 07:01 Method Of Arrival: Ambulatory tw5 07:01 Acuity: CHRISTINA 3 tw5 Triage Assessment: 07:02 General: Appears in no apparent distress. Behavior is calm, cooperative, appropriate tw5 for age. Pain: Pain currently is 5 out of 10 on a pain scale. GI: Abdomen is flat. Historical: - Allergies: 07:02 No Known Allergies; tw5 - PSHx: 07:02 rotator cuff; tw5 - Immunization history:: Adult Immunizations not up to date. - Social history:: Smoking status: Patient/guardian denies using tobacco, the patient reports quitting approximately 12 years ago. Screenin:20 Abuse screen: Denies threats or abuse. Nutritional screening: No deficits noted. jd3 Tuberculosis screening: No symptoms or risk factors identified. Fall Risk Ambulatory Aid- None/Bed Rest/Nurse Assist (0 pts). Gait- Normal/Bed Rest/Wheelchair (0 pts) Mental Status- Oriented to own ability (0 pts). Total Redman Fall Scale indicates No Risk (0-24 pts). Assessment: 07:18 General: Appears in no apparent distress. comfortable, Behavior is calm, cooperative, jd3 appropriate for age. Pain: Complains of pain in abdomen Quality of pain is described as crampy, pressure. Neuro: Villasenor Agitation-Sedation Scale (RASS): 0 - Alert and Calm Level of Consciousness is awake, alert, obeys commands, Oriented to person, place, time, situation. Cardiovascular: Denies chest pain, Capillary refill < 3 seconds Patient's skin is warm and dry. Respiratory: Airway is patent Respiratory effort is even, unlabored, Respiratory pattern is regular, symmetrical, Denies cough, shortness of breath. GI: Abdomen is non-distended, Bowel sounds present X 4 quads. Abd is soft and non tender X 4 quads. Reports constipation, diarrhea. : No signs and/or symptoms were reported regarding the genitourinary system. EENT: No signs and/or symptoms were reported regarding the EENT system. Derm: Skin is intact, Skin is dry, Skin is normal, Skin temperature is warm. Musculoskeletal: Circulation, motion, and sensation intact. Range of motion: intact in all extremities. 08:17 Reassessment: Patient appears in no apparent distress at this time. Patient and/or jd3 family updated on plan of care and expected duration. Pain level reassessed. Patient is alert, oriented x 3, equal unlabored respirations, skin warm/dry/pink. pt assisted to restroom. 08:44 Reassessment: Patient appears in no apparent distress at this time. Patient and/or jd3 family updated on plan of care and expected duration. Pain level reassessed. Patient is alert, oriented x 3, equal unlabored respirations, skin warm/dry/pink. Vital Signs: 07:01 BP 146 / 82; Pulse 62; Resp 18; Temp 98.2; Pulse Ox 98% ; Weight 81.65 kg; Height 6 ft. tw5 0 in. (182.88 cm); Pain 5/10; 08:18 BP 140 / 79; Pulse 64; Resp 17; Pulse Ox 98% on R/A; jd3 07:01 Body Mass Index 24.41 (81.65 kg, 182.88 cm) tw5 ED Course: 06:54 Patient arrived in ED. ja2 07:02 Triage completed. tw5 07:02 Arm band placed on. tw5 07:13 Matt Barnes MD is Attending Physician. kdr 07:15 Erik Murphy, RN is Primary Nurse. jd3 07:21 Patient has correct armband on for positive identification. Bed in low position. Call jd3 light in reach. Side rails up X 1. Pulse ox on. NIBP on. 07:53 Abdomen Acute Series XRAY In Process Unspecified. EDMS 08:44 No provider procedures requiring assistance completed. Patient did not have IV access jd3 during this emergency room visit. Administered Medications: 07:42 Drug: Lactulose 20 grams Volume: 30 ml; Route: PO; jd3 08:44 Follow up: Response: No adverse reaction jd3 Medication: 07:20 VIS not applicable for this client. jd3 Outcome: 08:36 Discharge ordered by . kdr 08:44 Discharged to home ambulatory. jd3 08:44 Condition: stable 08:44 Discharge instructions given to patient, Instructed on discharge instructions, follow up and referral plans. medication usage, Demonstrated understanding of instructions, follow-up care, medications, Prescriptions given X 1. 08:44 Patient left the ED. jd3 Signatures: Dispatcher [employer] EDRI Matt Barnes MD MD kdr Erik Murphy, FRANKLYN RN jNathalia Ferguson Tiffany tw5 Corrections: (The following items were deleted from the chart) 07:03 07:02 Home Meds: None; tw
--- NOTE | 2022-01-22 08:37 | EDPHYS ---
Physician Documentation [facility] Name: Blayne Chris Age: 71 yrs Sex: Male : 1950 Arrival Date: 01/22/2022 Time: 06:54 Bed 19 Private MD: ED Physician Matt Barnes HPI: 01/22 07:25 This 71 yrs old Male presents to ER via Ambulatory with complaints of Constipation. kdr 07:25 Patient complains of generalized abdominal discomfort. He states he has not had a bowel kdr movement of any significance in about 10 days. He has had occasional watery stools but no solid or formed stool that he can recall. Patient does not appear to be in any acute distress and does not currently require emergent intervention. He is otherwise without complaint. Onset: The symptoms/episode began/occurred gradually, 10 day(s) ago. Severity of symptoms: At their worst the symptoms were mild in the emergency department the symptoms are unchanged. The patient has not experienced similar symptoms in the past. The patient has been recently seen by a physician: Patient has been getting radiation treatments until about 10 days ago. Patient is being treated for throat cancer and was radiated in his neck area. This is resulted in decreased p.o. intake over that period of time.. Historical: - Allergies: 07:02 No Known Allergies; tw5 - PSHx: 07:02 rotator cuff; tw5 - Immunization history:: Adult Immunizations not up to date. - Social history:: Smoking status: Patient/guardian denies using tobacco, the patient reports quitting approximately 12 years ago. ROS: 07:25 Constitutional: Negative for fever, chills, and weight loss, Eyes: Negative for injury, kdr pain, redness, and discharge, Neck: Negative for injury, pain, and swelling, Cardiovascular: Negative for chest pain, palpitations, and edema, Respiratory: Negative for shortness of breath, cough, wheezing, and pleuritic chest pain, Back: Negative for injury and pain, : Negative for injury, bleeding, discharge, and swelling, MS/Extremity: Negative for injury and deformity, Skin: Negative for injury, rash, and discoloration, Neuro: Negative for headache, weakness, numbness, tingling, and seizure activity. Psych: Negative for depression, anxiety, suicide ideation, homicidal ideation, and hallucinations, Allergy/Immunology: Negative for hives, rash, and allergies, Endocrine: Negative for neck swelling, polydipsia, polyuria, polyphagia, and marked weight changes, Hematologic/Lymphatic: Negative for swollen nodes, abnormal bleeding, and unusual bruising. 07:25 Abdomen/GI: Positive for abdominal pain, constipation. Exam: 07:25 Constitutional: This is a well developed, well nourished patient who is awake, alert, kdr and in no acute distress. Head/Face: Normocephalic, atraumatic. Eyes: Pupils equal round and reactive to light, extra-ocular motions intact. Lids and lashes normal. Conjunctiva and sclera are non-icteric and not injected. Cornea within normal limits. Periorbital areas with no swelling, redness, or edema. Neck: Trachea midline, no thyromegaly or masses palpated, and no cervical lymphadenopathy. Supple, full range of motion without nuchal rigidity, or vertebral point tenderness. No Meningismus. Chest/axilla: Normal chest wall appearance and motion. Nontender with no deformity. No lesions are appreciated. Cardiovascular: Regular rate and rhythm with a normal S1 and S2. No gallops, murmurs, or rubs. Normal PMI, no JVD. No pulse deficits. Respiratory: Lungs have equal breath sounds bilaterally, clear to auscultation and percussion. No rales, rhonchi or wheezes noted. No increased work of breathing, no retractions or nasal flaring. Abdomen/GI: Soft, non-tender, with normal bowel sounds. No distension or tympany. No guarding or rebound. No evidence of tenderness throughout. Back: No spinal tenderness. No costovertebral tenderness. Full range of motion. Skin: Warm, dry with normal turgor. Normal color with no rashes, no lesions, and no evidence of cellulitis. MS/ Extremity: Pulses equal, no cyanosis. Neurovascular intact. Full, normal range of motion. Neuro: Awake and alert, GCS 15, oriented to person, place, time, and situation. Cranial nerves II-XII grossly intact. Motor strength 5/5 in all extremities. Sensory grossly intact. Cerebellar exam normal. Normal gait. Psych: Awake, alert, with orientation to person, place and time. Behavior, mood, and affect are within normal limits. 07:25 Abdomen/GI: Inspection: abdomen appears normal, Bowel sounds: normal, Palpation: soft, mild abdominal tenderness, in all quadrants, Rectal exam: Prostate: normal, rectal tone normal, Stool: fecal impaction, is not appreciated, There was no stool in the rectal vault. Vital Signs: 07:01 BP 146 / 82; Pulse 62; Resp 18; Temp 98.2; Pulse Ox 98% ; Weight 81.65 kg; Height 6 ft. tw5 0 in. (182.88 cm); Pain 5/10; 08:18 BP 140 / 79; Pulse 64; Resp 17; Pulse Ox 98% on R/A; jd3 07:01 Body Mass Index 24.41 (81.65 kg, 182.88 cm) tw5 MDM: 07:25 Data reviewed: vital signs, nurses notes, radiologic studies. Counseling: I had a kdr detailed discussion with the patient and/or guardian regarding: the historical points, exam findings, and any diagnostic results supporting the discharge/admit diagnosis, radiology results, the need for outpatient follow up. 08:36 Patient medically screened. kdr 01/22 07:25 Order name: Abdomen Acute Series XRAY; Complete Time: 08:35 kdr Administered Medications: 07:42 Drug: Lactulose 20 grams Volume: 30 ml; Route: PO; jd3 08:44 Follow up: Response: No adverse reaction jd3 Disposition Summary: 01/22/22 08:36 Discharge Ordered Location: Home kdr Problem: an ongoing problem kdr Symptoms: are unchanged kdr Condition: Stable kdr Diagnosis - Constipation kdr - Constipation, unspecified kdr Followup: kdr - With: Private Physician - When: 2 - 3 days - Reason: If symptoms return, Further diagnostic work-up, Recheck today's complaints, Continuance of care, Re-evaluation by your physician Discharge Instructions: - Discharge Summary Sheet kdr - Constipation, Adult, Vanf-ed-Nrbf kdr Forms: - Medication Reconciliation Form kdr - Thank You Letter kdr Prescriptions: - Lactulose 10 gram/15 mL Oral Solution - take 30 milliliters by ORAL route once daily As needed; 300 milliliter; kdr Refills: 0, Product Selection Permitted Signatures: Dispatcher [employer] EDMatt Eastman MD MD kdr Davies, Jonathon, RN RN jd3 Wood, Tiffany tw5 Corrections: (The following items were deleted from the chart) 07:03 07:02 Home Meds: None; tw5 tw5
[2022-01-22 08:56] VITALS: TEMP 98.2; O2SAT 98
[2022-01-22 08:59] VITALS: BP 140/79
== END 2022-01-22 08:44 | disposition home or self-care (01) ==
LOC: ER 06:51
DX: K59.00 Constipation, unspecified (principal)
CPT/HCPCS: 74022

== ENCOUNTER 2022-03-21 11:09 | Emergency (ER) | payer OTHER ==
--- OUTSIDE RECORDS SUMMARY | 2022-03-21 11:12 | XMS REPORT | Continuity of Care Document ---
:1950 Author Organization [facility] t Address [address] [place] [address] Care Team Providers Name Role Phone Unknown, Physician Primary Care Physician Unavailable SARAH ESPINOZA Attending Clinician Unavailable Libby Darling MA Attending Clinician Unavailable Lala Noel MA Attending Clinician Unavailable Lori Patterson APRN Attending Clinician SARAH ESPINOZA Attending Clinician Unavailable Yolanda Valadez MA Attending Clinician Unavailable SARAH ESPINOZA Admitting Clinician Unavailable SARAH ESPINOZA Admitting Clinician Unavailable Payers Payer Name Policy Type Policy Number Effective Date Expiration Date Kenzie dodson MEDICARE PART A [id number] 2013 AND B 00:00:00 Problems Condition Condition Condition Status Onset Resolution Last Treating Co mments Source Name Details Category Date Date Treatment Clinician Date Impingemen Impingemen Disease Active 2016-[address] t syndrome t syndrome 2-06 Fiona kes of right of right 00:00: Medica l shoulder shoulder 00 Center Rotator Rotator Disease Active 2016-[address] [facility] cuff tear, cuff tear, 2-06 Fiona kes right right 00:00: Medical 00 [place] Hyperlipid Hyperlipid Disease Active 2016-[address] [facility] Prehyperte Prehyperte Disease Active 2016-[address] [facility]ion 08 [facility] 00:00: Medical 00 [place] Former Former Disease Active 2016-[address] [facility] smoker smoker 06[facility]04 [facility] [place] Rotator Rotator Disease Active 2016-[address] [facility] cuff cuff 06[facility]04 [facility] injury, injury, 00:00: Medical right, right, 00 Center sequela sequela Lumbar Lumbar Disease Active [facility] stenosis stenosis [facility] Depression Depression Disease Active C HI [facility] No known No known Disease [place] active active Health problems problems Allergies, Adverse Reactions, Alerts This patient has no known allergies or adverse reactions. Family History Family Member Diagnosis Comments Start Date Stop Date Source Natural brother No Known Problem [facility] Natural father No Known Problem [facility] Natural mother No Known Problem [facility] Natural sister No Known Problem [facility] Social History Social Habit Start Date Stop Date Quantity Comments Source History of tobacco Cigarette Smoker [place] [facility] use Alcohol intake 2017-05-07 2017-05-[address] [facility] [address] [facility] 00:00:00 00:00:00 non-drinker of Medical nter alcohol (finding) Cigarettes smoked 2017-04-04 2017-04-[address] [facility] current (pack per 00:00:00 00:00:00 [facility] Center day) - Reported Cigarette 2017-04-04 2017-04-[address] [facility] [facility] pack-years 00:00:00 00:00:00 [facility] Tobacco use and 2017-04-04 2017-04-[address] [facility] exposure 00:00:00 00:00:00 [facility] Sex Ass[birth year] At [birth year] STEVIE Sarmiento 00:00:00 00:00:00 [facility] Smoking Status Start Date Stop Date Source Ex-smoker 2021-12-31 00:00:00 2021-12-31 00:00:00 [facility] Medic[facility] Ordered Filled Start Stop Current Ordering Indication Dosage Frequency Signature Comments Components Source Medication Medication Date Date Medication? Clinician (SIG) Name Name HYDROcodone 2021- No [id number] 1{tbl} Q6H Take 1 UT -acetaminop 6-21 06-27 tablet by Dillon mcguire (INPHI) 00:00: 04:59 mouth 5-325 MG 00 :00 every 6 tablet (six) hours if needed for severe pain for up to 5 days. HYDROcodone Yes [id number] 1{tbl} Q6H Take 1 UT -acetaminop 6-06 tablet by Lyle mcguire (INPHI) 00:00: mouth 5-325 MG 00 every 6 tablet (six) hours if needed for severe pain for up to 45 doses. HYDROcodone 2021-0 Yes [id number] 1{tbl} Q6H Take 1 UT -acetaminop 6-06 tablet by [facility] hen (INPHI) 00:00: mouth 5-325 MG 00 every 6 tablet (six) hours if needed for severe pain for up to 45 doses. HYDROcodone 2021-0 Yes [id number] 1{tbl} Q6H Take 1 UT -acetaminop 6-06 tablet by [facility] hen (INPHI) 00:00: mouth 5-325 MG 00 every 6 tablet (six) hours if needed for severe pain for up to 45 doses. HYDROcodone 2021-0 Yes [id number] 1{tbl} Q6H Take 1 UT -acetaminop 6-06 tablet by [facility] hen (INPHI) 00:00: mouth 5-325 MG 00 every 6 tablet (six) hours if needed for severe pain for up to 45 doses. HYDROcodone 2021-0 Yes [id number] 1{tbl} Q6H Take 1 UT -acetaminop 6-06 tablet by [facility] hen (INPHI) 00:00: mouth 5-325 MG 00 every 6 tablet (six) hours if needed for severe pain for up to 45 doses. HYDROcodone 2021-0 Yes [id number] 1{tbl} Q6H Take 1 UT -acetaminop 6-06 tablet by [facility] hen (INPHI) 00:00: mouth 5-325 MG 00 every 6 tablet (six) hours if needed for severe pain for up to 45 doses. HYDROcodone 2021-0 Yes [id number] 1{tbl} Q6H Take 1 UT -acetaminop 6-06 tablet by [facility] hen (INPHI) 00:00: mouth 5-325 MG 00 every 6 tablet (six) hours if needed for severe pain for up to 45 doses. traMADol 2021- No [id number] 50mg Take 1 U T (Ultram) 50 [...] 4-18 medication He alth 10:10: s 44 PARoxetine Yes TAKE ONE [facility] (PAXIL) 20 1-11 TABLET BY [facility] MG tablet 00:00: MOUTH ONCE Me dical 00 DAILY Center traMADol 2016-06 Yes 50mg Take [address] [facility] (ULTRAM) 50 2-06 by mouth Luke [facility] mg tablet 16:52: every 6 Medic al 16 (six) Center hours as needed for Pain. Immunizations Ordered Immunization Filled Immunization Date Status Commen ts Source Name Name Influenza High Dose 2017-04-03 [facility] 00:00:00 [facility] ([id number]) Vital Signs Vital Name Observation Time Observation [...] Date/Time Type Type Clinicians Facility Department ID 2022-02-11 2022-02-11 Outpatient SARAH ESPINOZA [facility] [id number] [place] 12:30:00 12:30:00 Health 2021-12-31 2021-12-31 Office Sarah Espinoza [facility] 6400 1.2.840.114 [id number] [place] 12:00:00 12:15:34 Visit PRICILLA SUE [id number] [facility] [id number] 3 2021-12-27 2021-12-27 Telephone Sarah Espinoza [facility] 6400 1.2.840.114 [id number] [place] 00:00:00 00:00:[address] [id number] Health [id number] 3 2021-12-26 2021-12-26 Telephone Sarah Espinoza [facility] 6400 1.2.840.114 [id number] [place] 00:00:00 00:00:[address] [id number] Health [id number] 3 2021-12-25 2021-12-25 Telephone Sarah Espinoza [facility] 6400 1.2.840.114 [id number] [place] 00:00:00 00:00:[address] [id number] Health [id number] 3 2021-11-20 2021-11-20 Telephone Libby DarlingRaven [facility] 6400 1.2.840 .114 [id number] [place] 00:00:00 00:00:[address] [id number] Health [id number] 3 2021-11-19 2021-11-19 Office Sarah Espinoza [facility] 6400 1.2.840.114 [id number] [place] 11:00:00 11:29:[address] [id number] Health [id number] 3 2021-11-16 2021-11-16 Telephone Libby DarlingRaven [facility] 6400 1.2.840 .114 [id number] [place] 00:00:00 00:00:00 Phong [address]aven [address] [id number] Health [id number] 3 2021-11-05 2021-11-05 Telephone Lala Noel [facility] 6400 1.2.84 0.114 [id number] [place] 00:00:00 00:00:[address] [id number] Health [id number] 3 2021-10-24 2021-10-24 Telephone KATTY Patterson 6400 1.2.840.114 [id number] [place] 00:00:00 00:00:[address] [id number] Health [id number] 3 2021-10-24 2021-10-24 Telephone Libby Darling [facility] 6400 1.2.840 .114 [id number] [place] 00:00:00 00:00:[address] [id number] Health [id number] 3 2021-10-19 2021-10-19 Telephone Sarah Espinoza [facility] 1.2.840.114 [id number] [place] 00:00:00 00:00:00 [facility] [id number] [facility] 1 [id number] 3 2021-10-15 2021-10-15 Telephone Sarah Espinoza [facility] 6400 1.2.840.114 [id number] [place] 00:00:00 00:00:[address] [id number] Health [id number] 3 2021-10-15 2021-10-15 Telephone Sarah sEpinoza [facility] 1.2.840.114 1 [id number] [place] 00:00:00 00:00:00 [facility] [id number] He alth [place] 1 [id number] [id number] 3 2021-10-12 2021-10-12 Telephone Sarah Espinoza [facility] 6400 1.2.840.114 [id number] [place] 00:00:00 00:00:[address] [id number] Health [id number] 3 2021-10-10 2021-10-10 Outpatient SARAH ESPINOZA [address] 05:17:00 23:59:00 2021-10-10 2021-10-10 Outpatient SARAH ESPINOZA [facility] [id number] [place] 08:00:00 08:00:00 Health 2021-09-24 2021-09-24 Telephone Yolanda Valadez 6400 1.2.84 0.114 [id number] NM 00:00:00 00:00:[address] [id number] Health [id number] 3 2021-09-17 2021-09-17 Office Sarah Espinoza 6400 1.2.840.114 13 [id number] [place] 10:30:00 10:45:00 Visit PRICILLA SUE [id number] Health [id number] 3 Results Test Description Test Time Test Comments Results Result [facility] e Comments RAD, CHEST, 2 2017-04-09 Reason for FINAL REPORT PATIENT VIEWS 13:13:00 Exam:->pre-ope ID: [id number] Chest, two rative views HISTORY: clearance; Preoperative clearance smoking COMPARISON: None. history; mild DISCUSSION: Lungs are chronic cough clear without focal consolidation. Cardiomediastinal silhouette is unremarkable. No acute osseous abnormality. No pleural effusion or pneumothorax. Visualized portions of the upper abdomen are unremarkable. IMPRESSION: No acute cardiopulmonary abnormality. Signed: Priyank Morley MDReport Verified Date/Time: 04/09/2017 13:13:18 Reading Location: [address] Radiology Reading Room
[2022-03-21] MEDS ORDERED: NA CHLORIDE 0.9% 1,000 ML ONE (11:35)
[2022-03-21 11:39] LABS: Absolute Lymphocytes (CBC) 1.3 K/uL (0.7-4.9); Hematocrit 40.4 % (39.6-49.0); Lymphocytes % 25.9 % (15.3-44.8); MCV 92.4 fL (80-100); MPV 7.2 fL (7.6-11.3); RBC Red Blood Cell Count 4.37 M/uL (4.33-5.43)
[2022-03-21 12:10] LABS: Albumin 3.9 g/dL (3.4-5.0); Bilirubin Total 0.7 mg/dL (0.2-1.0); Potassium 3.7 mmol/L (3.5-5.1); Protein, Total 7.2 g/dL (6.4-8.2)
--- NOTE | 2022-03-21 12:49 | RAD REPORT ---
EXAM DESCRIPTION: CT - Abdomen Pelvis W Contrast - 03/21/2022 12:24 pm CLINICAL HISTORY: Abdominal pain COMPARISON: none. TECHNIQUE: Computed axial tomography of the abdomen pelvis was obtained. 100 cc Isovue-300 was admin istered intravenously. Oral contrast was not requested which limits evaluation of bowel and appendix All CT scans are performed using dose optimization technique as appropriate and may include automated exposure control or mA/KV adjustment according to patient size. FINDINGS: The liver, spleen, pancreas, and left adrenal appear unremarkable A 3.7 centimeter right adrenal cyst. Bilateral small renal calculi. 4.2 centimeter cystic structure within the right kidney probably a par apelvic cyst. Mild left hydronephrosis. Prostate gland is mildly to moderately enlarged. Bladder wall is thickened. There is no evidence of diverticulitis. A qpsu-dz-srszpzia amount stool within the colon. 3.7 centimeter infrarenal abdominal aortic aneurysm Spondylosis lumbar spine IMPRESSION: 3.7 centimeter infrarenal abdominal aortic aneurysm Mild left hydronephrosis. An obstructing calculus is not seen Mild bladder wall thickening may be related to a chronic outlet obstruction
[2022-03-21] MEDS ORDERED: FLEET ENEMA ADULT PR ONE ×2 (13:34→13:51)
--- NOTE | 2022-03-21 14:20 | ER ---
Nurse's Notes [facility] Name: Blayne Chris Age: 71 yrs Sex: Male : 1950 Arrival Date: 03/21/2022 Time: 11:13 Bed 13 [facility] MD: Diagnosis: Constipation Presentation: 03/21 11:19 Chief complaint: Patient states: struggling with constipation x2 weeks after having an 5 epidural. is passing gas and has had small bouts of diarrhea but no real movement. is nauseous. Coronavirus screen: Vaccine status: Patient reports receiving the 2nd dose of the covid vaccine. Client denies travel out of the [place] in the last 14 days. At this time, the client does not indicate any symptoms associated with coronavirus-19. Ebola Screen: Patient negative for fever greater than or equal to 101.5 degrees Fahrenheit, and additional compatible Ebola Virus Disease symptoms Patient denies exposure to infectious person. Patient denies travel to an Ebola-affected area in the 21 days before illness onset. Initial Sepsis Screen: Does the patient meet any 2 criteria? No. Patient's initial sepsis screen is negative. Does the patient have a suspected source of infection? No. Patient's initial sepsis screen is negative. Risk Assessment: Do you want to hurt yourself or someone else? Patient reports no desire to harm self or others. Onset of symptoms was March 05, 2022. 11:19 Method Of Arrival: Ambulatory [facility] 11:19 Acuity: CHRISTINA 3 jh5 Triage Assessment: 11:21 General: Appears in no apparent distress. slender, well groomed, well developed, [facility] Behavior is calm, cooperative, appropriate for age. Pain: Denies pain. Historical: - PMHx: 11:21 throat cancer; spinal stenosis; jh5 - PSHx: 11:21 rotator cuff; jh5 - Immunization history:: Adult Immunizations up to date. - Social history:: Smoking status: Patient denies any tobacco usage or history of. Screenin:41 Abuse screen: Denies threats or abuse. Nutritional screening: No deficits noted. jd3 Tuberculosis screening: No symptoms or risk factors identified. Fall Risk IV access (20 points). Ambulatory Aid- None/Bed Rest/Nurse Assist (0 pts). Gait- Normal/Bed Rest/Wheelchair (0 pts) Mental Status- Oriented to own ability (0 pts). Total Redman Fall Scale indicates No Risk (0-24 pts). Assessment: 11:38 General: Appears in no apparent distress. comfortable, Behavior is calm, cooperative, jd3 appropriate for age. Pain: Complains of pain in low back area, right lower quadrant and left lower quadrant Quality of pain is described as aching, crampy. Neuro: Villasenor Agitation-Sedation Scale (RASS): 0 - Alert and Calm Level of Consciousness is awake, alert, obeys commands, Oriented to person, place, time, situation. Cardiovascular: Denies chest pain, Capillary refill < 3 seconds Patient's skin is warm and dry. Respiratory: Airway is patent Respiratory effort is even, unlabored, Respiratory pattern is regular, symmetrical, Denies cough, shortness of breath. GI: Abdomen is non-distended, Abd is soft X 4 quads Abdomen is tender to palpation in right lower quadrant and left lower quadrant Reports lower abdominal pain, nausea. : No signs and/or symptoms were reported regarding the genitourinary system. EENT: No signs and/or symptoms were reported regarding the EENT system. Derm: Skin is intact, Skin is dry, Skin is normal, Skin temperature is warm. Musculoskeletal: Circulation, motion, and sensation intact. Range of motion: intact in all extremities. 12:34 Reassessment: Patient appears in no apparent distress at this time. No changes from jd3 previously documented assessment. Patient and/or family updated on plan of care and expected duration. Pain level reassessed. Patient is alert, oriented x 3, equal unlabored respirations, skin warm/dry/pink. 13:37 Reassessment: Patient appears in no apparent distress at this time. Patient and/or jd3 family updated on plan of care and expected duration. Pain level reassessed. Patient is alert, oriented x 3, equal unlabored respirations, skin warm/dry/pink. fleet enema given to pt. pt teaching to use call la. door closed and nurse stepped out for pt privacy. 14:44 Reassessment: Patient appears in no apparent distress at this time. Patient and/or jd3 family updated on plan of care and expected duration. Pain level reassessed. Patient is alert, oriented x 3, equal unlabored respirations, skin warm/dry/pink. pt reports no relief from enema. provider notified. no new orders at this time. Vital Signs: 11:19 BP 135 / 72; Pulse 84; Resp 18; Temp 98.6; Pulse Ox 99% ; Weight 79.38 kg; Height 6 ft. jh5 0 in. (182.88 cm); Pain 4/10; 14:00 BP 130 / 75; Pulse 85; Resp 16; Pulse Ox 99% on R/A; jd3 11:19 Body Mass Index 23.73 (79.38 kg, 182.88 cm) [facility] ED Course: 11:13 Patient arrived in ED. am2 11:17 Ines Stahl FNP-C is PHCP. kb 11:17 Luis Angel Soliman MD is Attending Physician. kb 11:21 Triage completed. [facility] 11:21 Arm band placed on right wrist. [facility] 11:23 Erik Murphy, FRANKLYN is Primary Nurse. jd3 11:32 Inserted saline lock: 20 gauge in right antecubital area, using aseptic technique. jd3 Blood collected. 11:42 Patient has correct armband on for positive identification. Bed in low position. Call jd3 light in reach. Side rails up X 1. Adult w/ patient. Pulse ox on. NIBP on. 12:26 CT Abd/Pelvis - IV Contrast Only In Process Unspecified. EDMS 13:30 Served as a employment attorney during rectal exam. jd3 14:45 IV discontinued, intact, bleeding controlled, No redness/swelling at site. Pressure jd3 dressing applied. Administered Medications: 11:37 Drug: NS 0.9% 1000 ml Route: IV; Rate: 1000 ml; Site: right antecubital; jd3 12:30 Follow up: Response: No adverse reaction; IV Status: Completed infusion jd3 13:37 Drug: Fleet Enema (sodium phosphate) 133 ml Route: WA; jd3 14:30 Follow up: Response: No adverse reaction jd3 13:40 Drug: Fleet Enema (sodium phosphate) 133 ml Route: WA; jd3 14:40 Follow up: Response: No adverse reaction jd3 Medication: 11:42 VIS not applicable for this client. jd3 Outcome: 14:19 Discharge ordered by . kb 14:45 Discharged to home ambulatory. jd3 14:45 Condition: stable 14:45 Discharge instructions given to patient, Instructed on discharge instructions, follow up and referral plans. Demonstrated understanding of instructions, follow-up care. 14:49 Patient left the ED. jd3 Signatures: Dispatcher [employer] Ines Rodrigues, ARIC BAL-Aide Adams Jonathon, RN RN jd3 Nathalia Miller RN RN jh5
--- NOTE | 2022-03-21 14:20 | EDPHYS ---
Physician Documentation [facility] Name: Blayne Chris Age: 71 yrs Sex: Male : 1950 Arrival Date: 03/21/2022 Time: 11:13 Bed 13 Private MD: ED Physician Luis Angel Soliman HPI: 03/21 11:55 This 71 yrs old Male presents to ER via Ambulatory with complaints of Constipation. kb 11:55 The patient presents with abdominal pain that is diffuse. Onset: The symptoms/episode kb began/occurred 2 week(s) ago. The symptoms do not radiate. Associated signs and symptoms: Pertinent positives: constipation, Pertinent negatives: nausea, vomiting, and diarrhea, fever. The symptoms are described as constant. Modifying factors: The symptoms are alleviated by nothing, the symptoms are aggravated by nothing. Severity of pain: At its worst the pain was moderate in the emergency department the pain is unchanged. The patient has experienced similar episodes in the past. The patient has not recently seen a physician. Pt reports constipation for 2 weeks. States he was seen here Friday and given a prescription for lactulose, but it hasn't helped. Historical: - PMHx: 11:21 throat cancer; spinal stenosis; jh5 - PSHx: 11:21 rotator cuff; jh5 - Immunization history:: Adult Immunizations up to date. - Social history:: Smoking status: Patient denies any tobacco usage or history of. ROS: 11:40 Constitutional: Negative for fever, chills, and weight loss. kb 11:40 Abdomen/GI: Positive for abdominal pain, constipation, Negative for nausea, vomiting, and diarrhea. 11:40 All other systems are negative. Exam: 11:40 Constitutional: This is a well developed, well nourished patient who is awake, alert, kb and in no acute distress. Head/Face: Normocephalic, atraumatic. ENT: Moist Mucous membranes Cardiovascular: Regular rate and rhythm with a normal S1 and S2. No gallops, murmurs, or rubs. No pulse deficits. Respiratory: Respirations even and unlabored. No increased work of breathing. Talking in full sentences Skin: Warm, dry with normal turgor. Normal color. MS/ Extremity: Pulses equal, no cyanosis. Neurovascular intact. Full, normal range of motion. Neuro: Awake and alert, GCS 15, oriented to person, place, time, and situation. Moves all extremities. Normal gait. Psych: Awake, alert, with orientation to person, place and time. Behavior, mood, and affect are within normal limits. 11:40 Abdomen/GI: Inspection: abdomen appears normal, Bowel sounds: normal, Palpation: soft, in all quadrants, mild abdominal tenderness, in all quadrants. 13:31 Abdomen/GI: Rectal exam: rectal tone normal, fecal impaction, is not appreciated. kb Vital Signs: 11:19 BP 135 / 72; Pulse 84; Resp 18; Temp 98.6; Pulse Ox 99% ; Weight 79.38 kg; Height 6 ft. jh5 0 in. (182.88 cm); Pain 4/10; 14:00 BP 130 / 75; Pulse 85; Resp 16; Pulse Ox 99% on R/A; jd3 11:19 Body Mass Index 23.73 (79.38 kg, 182.88 cm) jh5 MDM: 11:17 Patient medically screened. kb 11:40 Data reviewed: vital signs, nurses notes. Data interpreted: Pulse oximetry: on room air kb is 99 %. Interpretation: normal. 13:31 Counseling: I had a detailed discussion with the patient and/or guardian regarding: the kb historical points, exam findings, and any diagnostic results supporting the discharge/admit diagnosis, lab results, radiology results, the need for outpatient follow up, a family practitioner, to return to the emergency department if symptoms worsen or persist or if there are any questions or concerns that arise at home. 03/21 11:21 Order name: CBC with Diff; Complete Time: 12:00 kb 03/21 11:21 Order name: CMP; Complete Time: 12:13 kb 03/21 11:21 Order name: Lipase; Complete Time: 12:13 kb 03/21 11:21 Order name: CT Abd/Pelvis - IV Contrast Only; Complete Time: 12:54 kb 03/21 11:21 Order name: IV Saline Lock; Complete Time: 11:32 kb 03/21 11:21 Order name: Labs collected and sent; Complete Time: 11:32 kb Administered Medications: 11:37 Drug: NS 0.9% 1000 ml Route: IV; Rate: 1000 ml; Site: right antecubital; jd3 12:30 Follow up: Response: No adverse reaction; IV Status: Completed infusion jd3 13:37 Drug: Fleet Enema (sodium phosphate) 133 ml Route: AR; jd3 14:30 Follow up: Response: No adverse reaction jd3 13:40 Drug: Fleet Enema (sodium phosphate) 133 ml Route: AR; jd3 14:40 Follow up: Response: No adverse reaction jd3 Disposition Summary: 03/21/22 14:19 Discharge Ordered Location: Home kb Condition: Stable kb Diagnosis - Constipation kb Followup: kb - With: Emergency Department - When: As needed - Reason: Worsening of condition Followup: kb - With: Private Physician - When: 2 - 3 days - Reason: Recheck today's complaints, Continuance of care, Re-evaluation by your physician Discharge Instructions: - Discharge Summary Sheet kb - Constipation, Adult, [id number] kb Forms: - Medication Reconciliation Form kb - Thank You Letter kb - Antibiotic Education kb - Prescription Opioid Use kb Addendum: 03/26/2022 03:58 Co-signature as Attending Physician, Luis Angel Soliman MD I agree with the assessment and c lamar plan of care. Signatures: Dispatcher [employer] Ines Rodrigues, INSURANCE SALES PRODUCER-C INSURANCE SALES PRODUCER-Luis Angel Almazan MD MD cha Davies, Jonathon, RN RN jd3 Nathalia Miller, RN RN jh5
[2022-03-21 15:09] VITALS: BP 135/72; TEMP 98.6; O2SAT 99
== END 2022-03-21 14:49 | disposition home or self-care (01) ==
LOC: ER 11:09
DX: K59.00 Constipation, unspecified (principal)
CPT/HCPCS: 85025; 36415; 83690; 80053; 74177; 96360; 99284; Q9967; J7030